=== PATIENT | female | born 2000 | race Caucasian/White ===

== ENCOUNTER 2022-05-10 00:25 | Emergency (ER) | payer OTHER ==
[~2022-05-10] VITALS: Ht 152.4 cm; Wt 58.1 kg
[2022-05-10 00:25] VITALS: BP 119/71
--- NOTE | 2022-05-10 00:31 | NUR ---
PT BIBA BLS ER BED 11
--- NOTE | 2022-05-10 00:32 | NUR ---
PT BIBA FOR ETOH INTOXICATION, PT PLACED IN GURNEY BY EMS, PT PLACED ON MONITOR, PT STATES SHE DRANK TOO MUCH VODKA, PT COVERED IN WATER AND VOMIT. WARM BLANKETS PROVIDED.
[2022-05-10] MEDS: NACL 0.9% 1,000 ML IV ONE (01:04)
[2022-05-10] MEDS: ONDANSETRON 4 MG/2 ML VIAL IVP ONE (01:05)
--- NOTE | 2022-05-10 01:21 | NUR ---
PTs FRIEND, SHEREEN VALDEZ, CALLED REQUESTING INFO ON PTs DISCHARGE DUE TO BEING THEIR TRANSPORTATION BACK HOME. # [phone]
[2022-05-10] MEDS ORDERED: ONDA-188 PO (02:42)
--- NOTE | 2022-05-10 04:15 | NUR ---
Patient discharged with v/s stable. Written and verbal after care instructions given and explained. Patient alert, oriented and verbalized understanding of instructions. Wheel Chair Assisted with to car. All questions addressed prior to discharge. ID band removed. Patient advised to follow up with PMD. Rx SENT TO PHARMACY. Patient educated on indication of medication including possible reaction and side effects. Opportunity to ask questions provided and answered.
[2022-05-10 04:38] VITALS: BP 121/60
== END 2022-05-10 04:25 | disposition home or self-care (01) ==
LOC: MED 00:25
DX: F10.129 Alcohol abuse with intoxication, unspecified (principal); Z79.899 Other long term (current) drug therapy
CPT/HCPCS: 96361; 96374; 99283; J2405; J7030